=== PATIENT | male | born 1985 | race Caucasian/White ===

== ENCOUNTER → 2017-12-10 16:29 | Outpatient (CLI) | payer OTHER, SELFPAY ==
--- NOTE | 2017-12-10 16:37 | DI.MRI.S_ITS ---
PROCEDURE: MR KNEE RT WO CON INDICATIONS: PAIN IN RIGHT KNEE TECHNIQUE: Noncontrast sagittal PD fast spin echo and T2 fast spin echo with fat saturation, sagittal 3-D FLASH with fat saturation; coronal T1 spin echo and PD fast spin echo with fat saturation, and axial PD fast spin echo with fat saturation through the knee. COMPARISON: None. FINDINGS: Image quality: Excellent. Menisci: The medial and lateral menisci demonstrate normal morphology and internal signal. The meniscal root ligaments appear intact. Cruciate ligaments: The anterior and posterior cruciate ligaments appear intact. Medial structures: The medial collateral ligament appears intact. The posterior oblique ligament, semimembranosus tendon insertions, oblique popliteal ligament, and meniscocapsular junction appear intact. Visualized portions of the pes anserinus tendons appear normal. No abnormal bursal fluid. Lateral structures: The lateral collateral ligament, long and short heads of the biceps femoris tendon appear intact. The popliteus tendon appears normal; the popliteofibular ligament appears intact. The posterosuperior and anteroinferior popliteomeniscal fascicles appear intact. The arcuate and fabellofibular ligaments appear intact, on either side of the lateral inferior geniculate artery. Iliotibial band appears normal. Anterior structures: The quadriceps and patellar tendons appear intact. Patellar alignment is normal. No femoral trochlear dysplasia or ventral trochlear prominence. No edema in the infrapatellar fat pad. Bones and cartilage: No bone marrow contusions or fractures. Fragmentation of the anterior tibial tubercle, consistent with remote [place]-Schlatter disease sequelae. Mild diffuse articular cartilage loss overlies the weightbearing aspects of the medial femoral condyle and medial tibial plateau. Joint space: There is physiologic knee joint fluid. Trace Mcnally's cyst. Normal appearing synovial plicae are incidentally noted. IMPRESSION: 1. No internal derangement. 2. Trace Mcnally's cyst. 3. Remote [place]-Schlatter disease. Dictated by: Demetrius Ríos M.D. on 12/11/2017 at 10:06 Approved by: Demetrius Ríos M.D. on 12/11/2017 at 10:10
== END ==
PROVIDERS: Visit Provider Family Medicine
DX: M25.561 Pain in right knee (principal)
CPT/HCPCS: 73721

== ENCOUNTER 2019-08-02 01:14 | Emergency (ER) | payer OTHER, SELFPAY ==
[2019-08-02 01:30] VITALS: BP 124/70; PULSE 52; RESP 15; TEMP 36.8; O2SAT 98; BMI 30.2
--- NOTE | 2019-08-02 01:43 | ED_ITS ---
HPI - Seizure General Chief Complaint: Seizure Stated Complaint: fell/hit his left side/passed out/seizure Time Seen by Provider: 08/02/19 01:40 Source: patient Mode of arrival: Ambulatory Limitations: no limitations History of Present Illness HPI Narrative: 34-year-old male nonsmoker with presents with an episode of syncope just prior to arrival. Patient had been in his normal state of health until this event. He denies any new medications, dietary change, or other lifestyle changes. Patient had been sleeping and woke up thirsty, he immediately felt lightheaded and eased himself to the floor and then passed out. He had a brief period of abnormal movements and then woke up. It took him about 5 minutes or so to get back to his baseline but has been symptom-free ever since. He denies any recent nausea, vomiting or diarrhea. He denies any history of the same. He has had no chest pain or shortness of breath. He denies any history of alcohol abuse or illicit drugs. He did not bite his tongue nor did he lose control of his bladder. He states he always has a very low heart rate and that doctors frequently ask him about. MD complaint: syncope Onset (ago): minute(s) Description of Episode: loss of consciousness -: second(s) Witnessed: yes - by bystander Trauma: No Seizure History: none Place: home Treatments prior to arrival: none Related Data Allergies Allergy/AdvReac Type Severity Reaction Status Date / Time No Known Drug Allergies Allergy Verified 08/02/19 01:42 Review of Systems Constitutional Constitutional: Denies chills, Denies fatigue, Denies fever(s), Denies frequent falls, Denies lethargy and Denies weakness Eyes Eyes: Denies change in vision, Denies eye discharge, Denies irritation and Denies loss of vision ENT Ears, Nose, Mouth, and Throat: Denies change in voice, Denies dizziness, Denies neck pain, Denies sore throat and Denies throat swelling Cardiovascular Cardiovascular: Denies chest pain, Reports syncope, Denies irregular heart rhythm, Denies lightheadedness, Denies palpitations, Denies dyspnea, Denies dyspnea on exertion and Denies orthopnea Respiratory Respiratory: Denies cough, Denies dyspnea, Denies dyspnea on exertion and Denies wheezing Gastrointestinal Gastrointestinal: Denies abdominal pain, Denies change in bowel habits, Denies diarrhea, Denies nausea and Denies vomiting Genitourinary Genitourinary: Denies hematuria, Denies flank pain, Denies urinary incontinence and Denies urinary urgency Musculoskeletal Musculoskeletal: Denies back pain, Denies muscle weakness, Denies neck pain, Denies numbness and Denies tingling Integumentary/Breasts Skin/Breast: Denies pruritus, Denies erythema, Denies rash and Denies wounds Neurologic Neurologic: Denies behavioral changes, Denies confusion, Denies dizziness, Reports syncope, Denies frequent falls, Denies loss of vision, Denies numbness, Denies tingling and Denies weakness Psychiatric Psychiatric: Denies anxiety, Denies behavioral changes, Denies confusion, Denies depression, Denies homicidal ideation and Denies suicidal ideation Endocrine Endocrine: Denies fatigue, Denies flushing and Denies palpitations Hematologic/Lymphatic Hematologic/Lymphatic: Denies easy bruising Allergic/Immunologic Allergic/Immunologic: Denies urticaria, Denies throat swelling and Denies wheezing Patient History Social History Smoking Status: Never smoker Smoking Status: Never smoker alcohol intake frequency: 0-2 drinks per day Substance Use Type: does not use Exam Narrative Exam Narrative: GENERAL: [34] year old patient appears stated age. Well- nourished, well-developed patient, in mild distress. HEAD: Atraumatic. Normocephalic. EYES: Pupils equal round and reactive. Extraocular motions intact. No scleral icterus. No injection or drainage. ENT: Nose without bleeding, purulent drainage. Throat without erythema, tonsillar hypertrophy or exudate. Airway patent. NECK: Trachea midline. Non tender CARDIOVASCULAR: Regular rate and rhythm without murmurs, gallops, or rubs. RESPIRATORY: Clear to auscultation. Breath sounds equal bilaterally. No wheezes, rales, or rhonchi. GASTROINTESTINAL: Abdomen soft, non-tender, nondistended. EXTREMITIES: No edema or joint tenderness. BACK: Nontender without deformity or crepitance. No flank tenderness. NEURO: AOx3. SKIN: No rash or erythema of visible areas NIH Stroke Scale 1a. LOC: Patient is alert and keenly responsive (0) 1b. LOC Questions: Patient answers both LOC questions accurately (0) 1c. LOC Commands: Patient performs both tasks correctly (0) 2. Best Gaze: Normal (0) 3. Visual: No visual loss (0) 4. Facial palsy: Normal symmetrical movements (0) 5. Motor arm: No drift (0) 6. Motor leg: No drift (0) 7. Limb ataxia: Absent (0) 8. Sensory: Normal (0) 9. Best language: No aphasia; normal (0) 10. Dysarthria: Normal (0) 11. Extinction and inattention: No abnormality (0) NIHSS: 0 Initial Vital Signs Initial Vital Signs: Vital Signs Temperature 98.2 F 08/02/19 01:30 Pulse Rate 52 L 08/02/19 01:30 Respiratory Rate 15 08/02/19 01:30 Blood Pressure 124/70 08/02/19 01:30 Pulse Oximetry 98 08/02/19 01:30 Course Orders Ordered: ED Orders 08/02/19 EKG-12 Lead Stat 08/02/19 01:35 Basic Metabolic Panel Stat Complete Blood Count AUTO DIFF Stat Magnesium Stat Prolactin Stat 08/02/19 01:45 CT head/brain wo con Stat Discontinued Medications Sodium Chloride (Normal Saline 0.9%) 1,000 mls @ 1,000 mls/hr IV BOLUS ONE Stop: 08/02/19 02:44 Last Infusion: 08/02/19 03:28 Dose: 0 mls/hr Documented by: Admin: 08/02/19 02:02 Dose: 1,000 mls/hr Documented by: KEVIN Vital Signs Vital signs: Vital Signs - 8 hr 08/02/19 01:30 08/02/19 03:28 Temperature 98.2 F Pulse Rate 52 L 49 L Respiratory Rate 15 15 Blood Pressure 124/70 116/72 Pulse Oximetry 98 98 MDM - Seizure Lab Data Result diagrams: 08/02/19 01:35 08/02/19 01:35 Labs: Lab Results 08/02/19 08/02/19 Range/Units 01:35 01:35 WBC 7.4 (4.5-11.0) X10^3/uL RBC 5.06 (4.5-5.9) X10^6/uL Hgb 16.0 (13.5-17.5) g/dL Hct 45.0 (41-53) % MCV 89.0 (80-100) fL MCH 31.6 (26-34) PG MCHC 35.5 (30-36) % RDW 13.2 (11.6-14.8) % Plt Count 206 (150-400) X10^3/uL Neut % (Auto) 44.3 L (50-75) % Lymph % (Auto) 45.7 H (25-40) % Waldo % (Auto) 8.2 (3-14) % Eos % (Auto) 1.4 L (2-4) % Baso % (Auto) 0.4 (0-2) % Neut # (Auto) 3300 (5777-5265) /uL Lymph # (Auto) 3400 (0267-7957) /uL Waldo # (Auto) 600 (0-900) /uL Eos # (Auto) 100 (0-450) /uL Baso # (Auto) 0 (0-100) /uL Sodium 138 (137-145) mmol/L Potassium 3.6 (3.4-5.1) mmol/L Chloride 103 (98-107) mmol/L Carbon Dioxide 24 (22-32) mmol/L BUN 17 (9-20) mg/dL Creatinine 0.80 (0.66-1.25) mg/dL Estimated GFR > 60.0 (>60) mL/min BUN/Creatinine Ratio 21.3 (6-22) Glucose 106 H (70-100) mg/dL Calcium 10.2 (8.4-10.2) mg/dL Magnesium 2.0 (1.6-2.3) mg/dL Prolactin 42.9 H (3.7-17.9) ng/mL Point of Care Testing Glucose POC 91 MDM Narrative Medical decision making narrative: 34-year-old otherwise healthy male with very reassuring exam and lab work. Patient's story most consistent with syncope though seizure considered. Patient had been lying flat trying to sleep and felt lightheaded nearly immediately upon standing and then collapsed within 1 minutes of standing. He had no noted postictal phase and states that he did feel it coming on. He felt much better after a L of fluids. Return precautions given, questions answered to his apparent satisfaction. Discharge Plan Departure Patient Disposition: Home Clinical Impression: Syncope Qualifiers: Syncope type: unspecified Qualified Code(s): R55 - Syncope and collapse Discharge Date/Time: 08/02/19 03:29 Instructions: DI for Syncope in Adults (Fainting) Activity Restrictions/Additional Instructions: *You have been diagnosed with [syncopal episode or less likely first-time seizure] *What to do: *Take medications as directed *Follow up with your primary care provider in 2-3 days, call for an appointment. Let them know you were seen in the Emergency Department and that we ask that you be seen in follow up *Return to ER if you should have any new, worsening or concerning symptoms
--- NOTE | 2019-08-02 01:45 | DI.CT.S_ITS ---
PROCEDURE: CT HEAD/BRAIN WO CON COMPARISON: None. INDICATIONS: fall with seizure, first time seizure FINDINGS: Brain/Ventricles: Ventricles, cerebral sulci, and basal cisterns are symmetric in size and morphology. No acute intracranial hemorrhage. No CT evidence of acute transcortical infarction. There is no focal mass effect, or shift in midline structures. Germain-white matter differentiation is maintained. Orbits/Globes: Visualized orbits and globes are unremarkable in appearance. Sinus: The frontal, ethmoid, maxillary, and sphenoid sinuses are clear. Mastoid: The bilateral mastoid air cells are clear. Soft tissues: Unremarkable as visualized. Bones: Calvarium is intact without acute fracture or suspicious intraosseous lesions. IMPRESSION: CT head without acute intracranial abnormalities. No mass or mass effect. No acute calvarial fractures. No significant discrepancy with the maintenance technician 2nd shift radiology preliminary report. Dictated by: Jose Alberto Kirkpatrick M.D. on 08/02/2019 at 7:02 Approved by: Jose Alberto Kirkpatrick M.D. on 08/02/2019 at 7:04
[2019-08-02 01:59] LABS: Add Manual Diff / Slide Review NO; Basophils Absolute Auto 0 /uL (0-100); Basophils Percent Auto 0.4 % (0-2); Eosinophils Absolute Auto 100 /uL (0-450); Eosinophils Percent Auto 1.4 % (2-4); Lymphocytes Absolute Auto 3400 /uL (1100-4500); Lymphocytes Percent Auto 45.7 % (25-40); Mean Corpuscular HGB Conc 35.5 % (30-36); Mean Corpuscular Hemoglobin 31.6 PG (26-34); Monocytes Absolute Auto 600 /uL (0-900); Monocytes Percent Auto 8.2 % (3-14); Neutrophils Absolute Auto 3300 /uL (1500-7000); Neutrophils Percent Auto 44.3 % (50-75); Platelet Count 206 X10^3/uL (150-400); Red Blood Cell Count 5.06 X10^6/uL (4.5-5.9); Red Cell Distribution Width 13.2 % (11.6-14.8); White Blood Cell Count 7.4 X10^3/uL (4.5-11.0)
[2019-08-02] MEDS: SODIUM CHLORIDE 0.9% 1,000 ML 1000 ML IV (02:02)
[2019-08-02 02:08] LABS: BUN Creatinine Ratio 21.3 (6-22); Blood Urea Nitrogen 17 mg/dL (9-20); Calcium 10.2 mg/dL (8.4-10.2); Carbon Dioxide 24 mmol/L (22-32); Chloride 103 mmol/L (98-107); Estimated Glomerular Filt Rate > 60.0 mL/min (>60); Glucose 106 mg/dL (70-100); HEMOLYSIS 22 (0-50); Potassium 3.6 mmol/L (3.4-5.1); Sodium 138 mmol/L (137-145)
[2019-08-02 02:25] LABS: Prolactin 42.9 ng/mL (3.7-17.9)
[2019-08-02 03:28] VITALS: BP 116/72; PULSE 49; RESP 15; O2SAT 98
== END 2019-08-02 03:29 | disposition home or self-care (01) ==
PROVIDERS: Emergency Provider Emergency Medicine
DX: R55 Syncope and collapse (principal); R07.9 Chest pain, unspecified
CPT/HCPCS: 36415; 70450; 80048; 82962; 83735; 84146; 85025; 93005; 96360; 99284; 99285

== ENCOUNTER 2021-03-28 08:45 | Emergency (ER) | payer OTHER, SELFPAY ==
--- NOTE | 2021-03-28 09:00 | ED.GENADULT ---
HPI - General Adult General Stated complaint: Lower right back 7 -10 pain x14 weeks Time Seen by Provider: 03/28/21 08:52 Source: patient Mode of arrival: Wheelchair History of Present Illness HPI narrative: 36-year-old male. Is active duty [employer]. Arrives to the emergency department for evaluation of right lower back pain. He states that his right lower back started to hurt approximately 2 weeks ago. [place] Has been on limited duty for the past week. Has also taken Flexeril and Tylenol and ibuprofen. He stated that his limited duty paperwork ended yesterday. He is currently in a promotion season that requires him to participate in physical activity. Because the limited duty paperwork and yesterday he was required to participate in in physical activity this morning. He states that during this time he had an increase in his right lower back pain. He states it is worse when he stands and puts pressure on the area. His next appointment with his medical provider is approximately 10 days from now. Related Data Previous Rx's Medication Instructions Recorded tramadol 50 mg tablet 50 mg PO Q6H PRN #10 tab 03/28/21 Allergies Allergy/AdvReac Type Severity Reaction Status Date / Time No Known Drug Allergies Allergy Verified 03/28/21 09:10 Review of Systems Constitutional Constitutional: Denies fever(s) Gastrointestinal Gastrointestinal: Reports system reviewed and no additional complaints, except as documented Musculoskeletal Musculoskeletal: Reports system reviewed and no additional complaints, except as documented and Reports as per HPI Integumentary/Breasts Skin/Breast: Reports system reviewed and no additional complaints, except as documented Neurologic Neurologic: Reports system reviewed and no additional complaints, except as documented Hematologic/Lymphatic On Anticoagulants: No Patient History Medical History Lower back pain Social History Smoking Status: Never smoker Smoking Status: Never smoker alcohol intake frequency: 0-2 drinks per day Substance Use Type: does not use Exam HENMT Head: normal to inspection and normocephalic Resp Effort & Inspection: normal respiratory effort Cardio Rate: regular rate GI Inspection: normal to inspection Palpation: soft Back/Spine/Pelvis Thoracic/Lumbar Spine: paraspinal tenderness (Right-sided lumbar), No thoracic spinal tenderness and No lumbar spinal tenderness Sacroiliac Joints: tender to palpation right Neuro General: patient alert, patient awake and moves all extremities Extrem General: capillary refill normal Course Orders Ordered: Discontinued Medications Ketorolac Tromethamine (Ketorolac 30 Mg/Ml Vial) 30 mg IM NOW ONE Stop: 03/28/21 09:01 Medical Decision Making MDM Narrative Medical decision making narrative: Patient has been having right sided lower back discomfort for the past several weeks. It was aggravated this morning when he was forced to do physical activity S with the [employer]. Your knee has muscle relaxers at home. Has been taking Tylenol and ibuprofen. He drove himself to the emergency department so was only given Toradol. Informed the patient that he would need to get any paperwork for long-term work related restrictions from his own medical department. I have low suspicion for fracture. Low suspicion for cauda equina. No fevers. No indication for radiologic studies today. Discharge Plan Departure Patient Disposition: Home Clinical Impression: Lower back pain Instructions: DI for Low Back Pain Activity Restrictions/Additional Instructions: The medications that you received in the emergency department today should not be sedating. Unfortunately any long-term work related restrictions will need to come from your medical department. Also any further workup to include imaging studies and specialist referrals will also need to come from your medical department as well. You were given a prescription for a very small amount of opioid pain medication. It was electronically transmitted to the [facility] pharmacy on the [facility]. medication is for breakthrough discomfort. 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 Prescriptions: New tramadol 50 mg tablet 50 mg PO Q6H PRN (Reason: pain) Qty: 10 RF: 0 Stand Alone Forms: Work Release Note
[2021-03-28 09:11] VITALS: BP 154/88; PULSE 84; RESP 17; TEMP 36.6; O2SAT 99
[2021-03-28] MEDS: KETOROLAC 30 MG/ML VIAL IM (09:13)
[2021-03-28 09:37] VITALS: BP 130/82; PULSE 76; RESP 18; O2SAT 99
== END 2021-03-28 09:37 | disposition home or self-care (01) ==
PROVIDERS: Emergency Provider Emergency Medicine
DX: M54.50 Low back pain, unspecified (principal)
CPT/HCPCS: 96372; 99283; J1885